=== PATIENT | male | born 1950 | race American Indian/Alaskan Native ===

== ENCOUNTER 2017-07-15 06:54 | Inpatient (IN) | payer OTHER ==
[~2017-07-15 06:54] MED LIST: Bupivacaine 0.5%/EPINEPHrine 1:200,000 50 ML MDV ONE; Gentamicin 40 MG/ML 2 ML Vial ONE; Scopolamine 1.5 MG Transdermal Patch TOP SCH
[2017-07-15] MEDS ORDERED: Gabapentin 300 MG Cap PO ONE (07:30)
[2017-07-15] MEDS ORDERED: Lactated Ringers 1,000 ML IV SCH (07:45)
[2017-07-15] MEDS ORDERED: Midazolam 1 MG/ML 5 ML SDV ONE (08:30)
[2017-07-15] MEDS: Tranexamic Acid 1,000 MG in Sodium Chloride 0.9% 50 ML IV SCH ×2 (08:30→11:06)
[2017-07-15] MEDS ORDERED: Propofol 200 MG/20 ML SDV ONE ×8 (08:40→15:13)
[2017-07-15] MEDS ORDERED: Ropivacaine 49.25 ML, Ketorolac 30 MG, EPINEPHrine 0.5 MG, cloNIDine 80 MCG, Sodium Chl... INJECT ONE ×5 (08:45)
[2017-07-15] MEDS ORDERED: Ketamine 500 MG/5 ML MDV IV SCH (08:45)
[2017-07-15] MEDS ORDERED: fentaNYL 100 MCG/2 ML SDV ONE ×2 (08:57→13:45)
[2017-07-15] MEDS ORDERED: ceFAZolin 2 GM in Premix Bag 1 BAG IV ONE (09:00)
[2017-07-15] MEDS ORDERED: Gentamicin 40 MG/ML 2 ML Vial ONE ×2 (09:20→13:21)
[2017-07-15] MEDS ORDERED: Lactated Ringers 1,000 ML ONE ×2 (09:25→10:48)
[2017-07-15] MEDS ORDERED: Phenylephrine 1% 10 MG/ML SDV ONE (09:53)
[2017-07-15] MEDS ORDERED: Sodium Chloride 0.9% 20 ML ONE (09:53)
[2017-07-15] MEDS ORDERED: Bisacodyl 5 MG Tab PO PRN (11:19)
[2017-07-15] MEDS ORDERED: HYDROmorphone 1 MG/ML Syringe IVPUSH PRN (11:19)
[2017-07-15] MEDS ORDERED: Aluminum Hydroxide/Magnesium Hydroxide/Simethicone Susp 30 ML Cup PO PRN (11:19)
[2017-07-15] MEDS ORDERED: Zolpidem 5 MG Tab PO PRN (11:19)
[2017-07-15] MEDS ORDERED: diphenhydrAMINE 50 MG/ML SDV IVPUSH PRN (11:19)
[2017-07-15] MEDS ORDERED: Naloxone 0.4 MG/ML SDV IVPUSH PRN (11:19)
[2017-07-15] MEDS ORDERED: Sennosides 8.6 MG Tab PO PRN (11:19)
[2017-07-15] MEDS ORDERED: Ondansetron 4 MG/2 ML SDV IVPUSH PRN (11:19)
[2017-07-15] MEDS ORDERED: Acetaminophen/oxyCODONE 325-5 MG Tab PO PRN (11:19)
--- NOTE | 2017-07-15 13:40 | CR ---
Pelvis 1V or 2V INDICATION: POST LEFT HIP ARTHROPLASTY FINDINGS: Comparison 06/09/2017. Interval postoperative changes of a left total hip arthroplasty. The distal aspect of the femoral component extends medially beyond the cortex approximately 4.3 cm. Stable right total hip arthroplasty. Findings discussed with Dr. Barlow in person at 1:35 PM on 07/15/2017.
[2017-07-15] MEDS ORDERED: Midazolam 1 MG/ML 2 ML SDV ONE (13:45)
[2017-07-15] MEDS ORDERED: ceFAZolin 2 GM in Premix Bag 1 BAG IV SCH ×2 (14:00→15:55)
[2017-07-15] MEDS ORDERED: ePHEDrine 50 MG/ML SDV ONE (14:49)
[2017-07-15] MEDS ORDERED: Vancomycin 1 GM SDV ONE (14:49)
--- NOTE | 2017-07-15 14:51 | OR ---
DATE OF PROCEDURE: 07/15/2017 PREOPERATIVE DIAGNOSIS: Left hip primary osteoarthritis. POSTOPERATIVE DIAGNOSIS: Left hip primary osteoarthritis. PROCEDURE: Left total hip arthroplasty. RISK CONTROL PRODUCT LIABILITY DIRECTOR: SHAR López FLUID: Lactated Ringer's solution. ESTIMATED BLOOD LOSS: 200 mL. COMPLICATIONS: None. SPECIMENS: None. DISCHARGE DISPOSITION: Stable to PACU. ANESTHESIA: Spinal plus conscious sedation. INSTRUMENTATION: A 58 mm Biomet G7 acetabular shell with one 20 mm screw and one 15 mm screw. A G7 acetabular liner, 40 mm liner size G and a Taperloc microplasty 15 x 115 standard offset primary femoral component, porous coated, with a +6 mm neck of the metal head which was 40 mm. INDICATIONS FOR PROCEDURE: The patient was seen preoperatively in the clinic. He had failed nonoperative treatment. He did have a previous right total hip arthroplasty in 2013. He did well after this procedure. Preoperative imaging confirmed the above-mentioned diagnosis. Risks and benefits of the procedure were explained to the patient. Informed consent was obtained. DETAILS OF PROCEDURE: The patient was seen preoperatively by myself and the anesthesia staff in the preoperative holding area where the operative sites were marked. He was brought to the operative suite by the anesthesia staff where a spinal anesthesia was administered as well conscious sedation. He had a sterile Stock catheter placed. He was placed in right lateral recumbent position on the pegboard. All extremities were found to be well padded. An axillary roll was placed. The left lower extremity was then prepped and draped in a sterile manner. Time-out was called identifying the correct patient, correct procedure, the correct site, and antibiotics had been given with appropriate period of time. An incision was made approximately 8 mm proximal to the greater trochanter then extending down just below the level of lesser trochanter. Bleeding was controlled during the procedure with Bovie electrocautery as well as an Aquamantys unit. We used Gelpi for initial retraction. The deep fascia was visualized. I then went through the deep fascia and the IT band, and then used a Charnley retractor for retraction. I then used Bovie electrocautery to dissect from the level of lesser trochanter, and then entered the insertion of the capsule and to the greater trochanter going through a part of gluteus medius. After this had been accomplished, I then took two sharp Homans on each side of the femoral neck, and then using Bovie electrocautery went down to the level of the acetabulum and used the deep knife to incise right over the tip of the acetabulum. After this had been accomplished, I then released some more tissue medially for dislocation. I was unable to dislocate the hip, and therefore, made two cuts. I then used a corkscrew to remove the head and then placed Homans at 4 and 8 o'clock and then a Steinmann pin superiorly above the acetabulum for retraction, which provided excellent exposure. I then removed the remainder of the fovea using a large curette. We then removed the labrum using a deep knife and Mary, and then used a 47 starter reamer to get to medial wall, and then sequentially reamed up to a 57. We then copiously irrigated with saline and then placed a 58 mm cup. This had good contact and the pitch changed when we were down. I then drilled my superior and posterior screws and then placed the screws. We then placed the liner. We then copiously irrigated with saline. I then concentrated on the femur. We used a juke box servicer to get lateral enough on the femur, and then due to the very thick marrow, I then used a starting reamer by hand and then used a curette and then went back to the reamer and used a lateral reamer. I punched through just distal to the lesser trochanter in the canal. We then sequentially broached from 7 to 15 stopping at 15. I then trailed with a standard offset zero and then went to a plus 6. The plus 6 had notion shuck and no dislocation with external rotation. Leg lengths appeared to be equal. We then removed all components, copiously irrigated with saline, and then inserted our final femoral component head and then relocated it. This provided the same excellent stability. We then closed the capsule with two #5 Ethibond and closed the deep musculature with the gluteus minimus and gluteus medius attachments to the greater trochanter. We then closed the deep fascia with two STRATAFIX followed by subcutaneous layer with one STRATAFIX followed by skin stefano. The patient was then rolled onto his hospital bed and taken to the PACU in stable condition. Sherman Barlow DO /[id number]
[2017-07-15] MEDS ORDERED: Acetaminophen 1,000 MG in Premix Bag 1 BAG IV ONE (15:56)
[2017-07-15] MEDS ORDERED: Dexamethasone 4 MG/ML SDV IVPUSH SCH (16:00)
[2017-07-15] MEDS: Dexamethasone 4 MG/ML SDV IVPUSH SCH (18:01)
[2017-07-15] MEDS: Lactated Ringers 1,000 ML IV SCH (19:18)
[2017-07-15] MEDS: oxyCODONE 5 MG Tab PO PRN ×2 (19:18→23:00)
--- NOTE | 2017-07-15 19:59 | OR ---
DATE OF PROCEDURE: 07/15/2017 PREOPERATIVE DIAGNOSIS: Malposition of femoral stem. POSTOPERATIVE DIAGNOSIS: Malposition of femoral stem. PROCEDURE: Revision total hip arthroplasty with repositioning the femoral stem. PIPE WASHER: SHAR López ANESTHESIA: Spinal plus conscious sedation. FLUID: Lactated Ringer solution. ESTIMATED BLOOD LOSS: 50 mL. COMPLICATIONS: None. SPECIMEN: None. DISCHARGE DISPOSITION: Stable to PACU. INDICATIONS FOR THE PROCEDURE: The patient was seen in the PACU, where we got final films for his total hip arthroplasty at approximately 1115 hours to 1130 hours. This showed malposition of the femoral implant. I immediately made the patient aware because he had recently been undergoing anesthesia. I advised his that we should reposition this as soon as possible and she gave me informed consent. We then proceeded as soon as we could reasonably sterilize our instruments approximately 2 to 2.5 hours later. DETAILS OF PROCEDURE: The patient was brought to the operative suite by the Anesthesia staff, where spinal anesthesia was administered plus conscious sedation. He was placed into a PEG board on the right lateral recumbent position. All extremities were found to be well padded. The patient already had a Stock catheter placed, axillary roll was present. The left lower extremity was then prepped and draped in a sterile manner. Time-out was called identifying the correct patient, correct procedure, the correct site, and antibiotics had been with appropriate period of time. We then went through the previous incision and cut the sutures and I took as much of sutures out as we could, down to the deep sutures. I then dislocated the hip, removed the head, and then attached a back slap hammer to the femoral component and removed this easily. We then used a lateralizing reamer and then sequentially broached up to a 15, which was again a very good fit. We confirmed that this fit was good on fluoroscopy from a sterilely draped fluoroscopy unit. We then removed the femoral trial component and then placed our final component and after copiously irrigating with saline. I then trialed with the previous ball, which was a +6 and had a small amount of Shuck, so we then placed a +9 ball 40 mm on and this provided nearly no Shuck and excellent range of motion without dislocation. We then copiously irrigated again with saline. I then placed a #5 Ethibond sutures into the capsule and gluteus minimus and medius muscles into the greater trochanter closing the capsule superiorly as I could and then after placing 1 g of vancomycin powder, we then copiously irrigated with saline again and then closed the gluteus. The iliotibial band with #2 STRATAFIX followed by irrigation, followed by closure with #1 STRATAFIX subcutaneously followed by skin stefano, followed by sterile dressing. The patient was then rolled onto his hospital bed and taken to the PACU in stable condition. Sherman Barlow DO /[id number]
[2017-07-15] MEDS: Aspirin 325 MG Tab.EC PO SCH (20:26)
[2017-07-15] MEDS: Famotidine 20 MG Tab PO SCH (20:26)
[2017-07-15] MEDS ORDERED: Famotidine 20 MG Tab PO SCH (21:00)
[2017-07-15] MEDS ORDERED: Aspirin 325 MG Tab.EC PO SCH (21:00)
[2017-07-15] MEDS: ceFAZolin 2 GM in Sodium Chloride 0.9% 50 ML IV SCH (22:11)
[2017-07-15] MEDS: Ketorolac 30 MG/ML SDV IVPUSH PRN (22:11)
[2017-07-16] MEDS: Dexamethasone 4 MG/ML SDV IVPUSH SCH ×3 (00:05→11:34)
[2017-07-16] MEDS: Ketorolac 30 MG/ML SDV IVPUSH PRN ×3 (03:10→07:35)
[2017-07-16] MEDS: oxyCODONE 5 MG Tab PO PRN ×3 (03:10→22:02)
[2017-07-16] MEDS: Lactated Ringers 1,000 ML IV SCH (05:35)
[2017-07-16] MEDS: ceFAZolin 2 GM in Sodium Chloride 0.9% 50 ML IV SCH ×3 (06:00→21:58)
[2017-07-16] MEDS: Famotidine 20 MG Tab PO SCH ×2 (07:30→20:08)
[2017-07-16] MEDS: Aspirin 325 MG Tab.EC PO SCH ×2 (07:30→20:08)
[2017-07-16] MEDS ORDERED: ZOLPIDEM TARTRATE PO PRN (09:15)
[2017-07-16] MEDS ORDERED: Sildenafil 20 MG Tab PO PRN (09:15)
[2017-07-16] MEDS ORDERED: Albuterol 8 GM Inhaler INH PRN (09:15)
[2017-07-16] MEDS: Carvedilol 12.5 MG Tab PO SCH (09:43)
[2017-07-16] MEDS: Hydrochlorothiazide/Triamterene 25-37.5 MG Cap PO SCH (09:44)
[2017-07-16] MEDS: Fish Oil/Omega-3 Fatty Acids 1 Gm Cap PO SCH (09:44)
[2017-07-16] MEDS: Levothyroxine 25 MCG Tab PO SCH (09:45)
[2017-07-16] MEDS: Docusate Sodium 100 MG Cap PO SCH (09:46)
[2017-07-16] MEDS: Sodium Chloride 0.9% 10 ML Syringe FLUSH SCH (09:47)
[2017-07-16] MEDS: Losartan 50 MG Tab PO SCH (09:48)
[2017-07-16] MEDS: Rosuvastatin 10 MG Tab PO SCH (09:49)
[2017-07-16] MEDS: Tamsulosin 0.4 MG Cap.ER PO SCH (09:49)
[2017-07-16] MEDS: Cetirizine 10 MG Tab PO SCH (09:50)
--- NOTE | 2017-07-16 09:59 | PCM.PN ---
- General Info Date of Service: 07/16/17 Functional Status: Reports: Pain Controlled, Tolerating Diet, Ambulating, Urinating - Patient Data Vitals - Most Recent: Last Vital Signs Temp 36.9 C 07/15/17 22:19 Pulse 85 07/16/17 09:43 Resp 18 07/15/17 22:19 BP 113/71 07/16/17 09:48 Pulse Ox 94 L 07/16/17 08:00 Weight - Most Recent: 273 lb I&O - Last 24 Hours: Intake & Output 07/15/17 07/16/17 07/16/17 22:59 06:59 14:59 Intake Total 1280 Output Total 235 Balance 1045 Lab Results Last 24 Hours: Laboratory Results - last 24 hr 07/16/17 07/16/17 Range/Units 05:15 05:19 WBC 15.3 H (4.5-11.0) K/uL RBC 3.78 L (4.30-5.90) M/uL Hgb 11.8 L D (12.0-15.0) g/dL Hct 35.4 L (40.0-54.0) % MCV 94 (80-98) fL MCH 31 (27-31) pg MCHC 33 (32-36) % Plt Count 189 (150-400) K/uL Neut % (Auto) 91 H (36-66) % Lymph % (Auto) 4 L (24-44) % [place] % (Auto) 5 (2-6) % Eos % (Auto) 0 L (2-4) % Baso % (Auto) 0 (0-1) % Sodium 132 L (140-148) mmol/L Potassium 4.0 (3.6-5.2) mmol/L Chloride 98 L (100-108) mmol/L Carbon Dioxide 23 (21-32) mmol/L Anion Gap 15.0 H (5.0-14.0) mmol/L BUN 19 H (7-18) mg/dL Creatinine 1.2 (0.8-1.3) mg/dL Est Cr Clr Drug Dosing 62.37 mL/min Estimated GFR (MDRD) > 60 (>60) Glucose 178 H (74-106) mg/dL Calcium 8.0 L D (8.5-10.1) mg/dL Total Bilirubin 0.5 (0.2-1.0) mg/dL AST 63 H (15-37) U/L ALT 59 (12-78) U/L Alkaline Phosphatase 59 (46-116) U/L Total Protein 6.9 (6.4-8.2) g/dL Albumin 3.2 L (3.4-5.0) g/dL Globulin 3.7 H (2.3-3.5) g/dL Albumin/Globulin Ratio 0.9 L (1.2-2.2) Med Orders - Current: Current Medications Al Hydroxide/Mg Hydroxide (Mag-Al Plus) 30 ml PO Q4H PRN PRN Reason: Constipation Albuterol (Ventolin Hfa) 0 gm INH Q6H PRN PRN Reason: Shortness of Breath Aspirin (Ecotrin) 325 mg PO BID [facility] Last Admin: 07/16/17 09:00 Dose: 325 mg Bisacodyl (Dulcolax) 10 mg PO DAILY PRN PRN Reason: Constipation Carvedilol (Coreg) 12.5 mg PO DAILY [facility] Last Admin: 07/16/17 09:43 Dose: 12.5 mg Cetirizine HCl (Zyrtec) 10 mg PO DAILY [facility] Last Admin: 07/16/17 09:50 Dose: 10 mg Dexamethasone (Dexamethasone) 4 mg IVPUSH Q6H [facility] Stop: 07/16/17 12:01 Last Admin: 07/16/17 00:05 Dose: 4 mg Diazepam (Valium) 5 mg IVPUSH Q6H PRN PRN Reason: Spasms Diphenhydramine HCl (Benadryl) 25 mg IVPUSH Q4H PRN PRN Reason: Itching Docusate Sodium (Colace) 100 mg PO BID PRN PRN Reason: Constipation Docusate Sodium (Colace) 100 mg PO DAILY [facility] Last Admin: 07/16/17 09:46 Dose: 100 mg Famotidine (Pepcid) 20 mg PO BID [facility] Last Admin: 07/16/17 09:00 Dose: 20 mg Fish Oil (Fish Oil) 1 gm PO DAILY [facility] Last Admin: 07/16/17 09:44 Dose: 1 gm Hydromorphone HCl (Dilaudid) 1 mg IVPUSH Q2H PRN PRN Reason: Pain Lactated Ringer's (Ringers, Lactated) 1,000 mls @ 100 mls/hr IV ASDIRECTED [facility] Last Admin: 07/15/17 19:18 Dose: 100 mls/hr Cefazolin Sodium 2 gm/ Sodium (Chloride) 50 mls @ 100 mls/hr IV Q8H [facility] Stop: 07/16/17 22:29 Last Admin: 07/15/17 22:11 Dose: 100 mls/hr Ketorolac Tromethamine (Toradol) 30 mg IVPUSH Q8H PRN PRN Reason: Pain Stop: 07/20/17 11:20 Last Admin: 07/15/17 22:11 Dose: 30 mg Levothyroxine Sodium (Levothyroxine) 25 mcg PO DAILY@0730 [facility] Last Admin: 07/16/17 09:45 Dose: 25 mcg Losartan Potassium (Cozaar) 100 mg PO DAILY [facility] Last Admin: 07/16/17 09:48 Dose: 100 mg Magnesium Hydroxide (Milk Of Magnesia) 30 ml PO BID PRN PRN Reason: Constipation Multivitamins/Minerals (Thera M Plus) 1 tab PO DAILY [facility] Ondansetron HCl (Zofran) 8 mg IVPUSH Q4H PRN PRN Reason: Nausea/Vomiting Oxycodone HCl (Oxycodone) 10 mg PO Q4H PRN PRN Reason: Pain Last Admin: 07/15/17 23:00 Dose: 10 mg Rosuvastatin Calcium (Crestor) 20 mg PO DAILY [facility] Last Admin: 07/16/17 09:49 Dose: 20 mg Scopolamine (Transderm-Scop) 1.5 mg TOP Q72H [facility] Stop: 07/18/17 03:00 Last Admin: 07/15/17 07:48 Dose: 1.5 mg Senna (Senna) 8.6 mg PO BID PRN PRN Reason: Constipation Sildenafil Citrate (Revatio) 100 mg PO ASDIRECTED PRN PRN Reason: Other Sodium Chloride (Saline Flush) 10 ml FLUSH DAILY [facility] Last Admin: 07/16/17 09:47 Dose: 10 ml Tamsulosin HCl (Flomax) 0.8 mg PO DAILY [facility] Last Admin: 07/16/17 09:49 Dose: 0.8 mg Tramadol HCl (Ultram) 100 mg PO Q6H PRN PRN Reason: Pain Triamterene/HCTZ (Dyazide 25-37.5 Mg) 2 each PO DAILY [facility] Last Admin: 07/16/17 09:44 Dose: 2 each Zolpidem Tartrate (Ambien) 5 mg PO BEDTIME PRN PRN Reason: Sleep Last Admin: 07/15/17 22:11 Dose: 5 mg Discontinued Medications Aspirin (Ecotrin) 325 mg PO BID [facility] Bupivacaine HCl/Epinephrine Bitart (Marcaine 0.5%/Epinephrine 1:200,000) Confirm Administered Dose 50 ml .ROUTE .STK-MED ONE Stop: 07/15/17 06:41 Ropivacaine 49.25 ml/Ketorolac Tromethamine 30 mg/Epinephrine HCl 0.5 mg/ Clonidine HCl 80 mcg/ Sodium Chloride 48.45 ml 0 ml INJECT ONETIME ONE Stop: 07/15/17 08:46 Last Admin: 07/15/17 09:33 Dose: 100 ml Dexamethasone (Dexamethasone) 4 mg IVPUSH Q6H [facility] Stop: 07/16/17 10:01 Last Admin: 07/15/17 17:47 Dose: Not Given Diazepam (Valium) 2 mg IVPUSH ONETIME ONE Stop: 07/15/17 11:44 Last Admin: 07/15/17 11:50 Dose: 2 mg Ephedrine Sulfate (Ephedrine Sulfate) Confirm Administered Dose 100 mg .ROUTE .STK-MED ONE Stop: 07/15/17 14:50 Famotidine (Pepcid) 20 mg PO BID [facility] Fentanyl (Sublimaze) Confirm Administered Dose 100 mcg .ROUTE .STK-MED ONE Stop: 07/15/17 08:58 Fentanyl (Sublimaze) Confirm Administered Dose 100 mcg .ROUTE .STK-MED ONE Stop: 07/15/17 13:46 Gabapentin (Neurontin) 300 mg PO ONETIME ONE Stop: 07/15/17 07:31 Last Admin: 07/15/17 07:49 Dose: 300 mg Gentamicin Sulfate (Gentamicin) Confirm Administered Dose 240 mg .ROUTE .STK- MED ONE Stop: 07/15/17 06:41 Last Admin: 07/15/17 10:08 Dose: 240 mg Gentamicin Sulfate (Gentamicin) Confirm Administered Dose 240 mg .ROUTE .STK- MED ONE Stop: 07/15/17 09:21 Last Admin: 07/15/17 10:09 Dose: 240 mg Gentamicin Sulfate (Gentamicin) Confirm Administered Dose 240 mg .ROUTE .STK- MED ONE Stop: 07/15/17 13:22 Last Admin: 07/15/17 14:09 Dose: 240 mg Lactated Ringer's (Ringers, Lactated) 1,000 mls @ 0 mls/hr IV ASDIRECTED [facility] PRN Reason: KVO Last Admin: 07/15/17 07:37 Dose: 100 mls/hr Tranexamic Acid 1,000 mg/ (Sodium Chloride) 60 mls @ 240 mls/hr IV Q3H [facility] Stop: 07/15/17 11:59 Last Admin: 07/15/17 11:06 Dose: 240 mls/hr Ketamine HCl 100 mg/ Sodium (Chloride) 100 mls @ 21 mls/hr IV ASDIRECTED [facility] Cefazolin Sodium/Dextrose 2 gm (/ Premix) 50 mls @ 100 mls/hr IV PREPRO ONE Stop: 07/15/17 09:29 Last Admin: 07/15/17 08:35 Dose: 100 mls/hr Lactated Ringer's (Ringers, Lactated) Confirm Administered Dose 1,000 mls @ as directed .ROUTE .STK-MED ONE Stop: 07/15/17 09:26 Sodium Chloride (Normal Saline) Confirm Administered Dose 20 mls @ as directed .ROUTE .STK-MED ONE Stop: 07/15/17 09:54 Lactated Ringer's (Ringers, Lactated) Confirm Administered Dose 1,000 mls @ as directed .ROUTE .STK-MED ONE Stop: 07/15/17 10:49 Cefazolin Sodium/Dextrose 2 gm (/ Premix) 50 mls @ 100 mls/hr IV Q8H [facility] Stop: 07/16/17 06:29 Last Admin: 07/15/17 14:06 Dose: 100 mls/hr Cefazolin Sodium/Dextrose 2 gm (/ Premix) 50 mls @ 100 mls/hr IV Q8H [facility] Stop: 07/16/17 14:29 Last Admin: 07/15/17 17:46 Dose: Not Given Acetaminophen 1,000 mg/ Premix 100 mls @ 400 mls/hr IV ONETIME ONE Stop: 07/15/17 16:10 Last Admin: 07/15/17 16:04 Dose: 400 mls/hr Ketamine HCl (Ketalar) 35 mg IV ASDIRECTED BEV Midazolam HCl (Versed 1 Mg/Ml) Confirm Administered Dose 5 mg .ROUTE .STK-MED ONE Stop: 07/15/17 08:31 Midazolam HCl (Versed 1 Mg/Ml) Confirm Administered Dose 2 mg .ROUTE .STK-MED ONE Stop: 07/15/17 13:46 Naloxone HCl (Narcan) 0.1 mg IVPUSH ONETIME PRN PRN Reason: Oversedation Stop: 07/15/17 11:20 Non-Formulary Medication (Zolpidem Tartrate [Ambien]) 1 tab PO BEDTIME PRN PRN Reason: Insomnia Oxycodone/Acetaminophen (Percocet 325-5 Mg) 2 tab PO Q4H PRN PRN Reason: Pain Phenylephrine HCl (Rene-Synephrine) Confirm Administered Dose 10 mg .ROUTE .STK- MED ONE Stop: 07/15/17 09:54 Propofol (Diprivan 20 Ml) Confirm Administered Dose 200 mg .ROUTE .STK-MED ONE Stop: 07/15/17 08:41 Propofol (Diprivan 20 Ml) Confirm Administered Dose 200 mg .ROUTE .STK-MED ONE Stop: 07/15/17 08:55 Propofol (Diprivan 20 Ml) Confirm Administered Dose 200 mg .ROUTE .STK-MED ONE Stop: 07/15/17 09:29 Propofol (Diprivan 20 Ml) Confirm Administered Dose 200 mg .ROUTE .STK-MED ONE Stop: 07/15/17 10:15 Propofol (Diprivan 20 Ml) Confirm Administered Dose 200 mg .ROUTE .STK-MED ONE Stop: 07/15/17 13:46 Propofol (Diprivan 20 Ml) Confirm Administered Dose 200 mg .ROUTE .STK-MED ONE Stop: 07/15/17 14:35 Propofol (Diprivan 20 Ml) Confirm Administered Dose 200 mg .ROUTE .STK-MED ONE Stop: 07/15/17 14:46 Propofol (Diprivan 20 Ml) Confirm Administered Dose 200 mg .ROUTE .STK-MED ONE Stop: 07/15/17 15:14 Vancomycin HCl (Vancomycin) Confirm Administered Dose 1 gm .ROUTE .STK-MED ONE Stop: 07/15/17 14:50 Last Admin: 07/15/17 16:03 Dose: 1 gm - Exam General: Alert, Oriented Extremities: Normal Inspection, Normal Range of Motion, Non-Tender, No Pedal Edema, Normal Capillary Refill Peripheral Pulses: 2+: Dorsalis Pedis (L), Dorsalis Pedis (R) Skin: Warm, Dry, Intact Wound/Incisions: Healing Well, Dressing Dry and Intact, No Drainage Neurological: No New Focal Deficit Psy/Mental Status: Alert - Problem List Review Problem List Initiated/Reviewed/Updated: Yes - My Orders Last 24 Hours: My Active Orders 07/15/17 11:19 Alum Hydrox/Mag Hydrox/Simeth [Mag-Al Plus] 30 ml PO Q4H PRN Bisacodyl [Dulcolax] 10 mg PO DAILY PRN Diazepam [Valium] 5 mg IVPUSH Q6H PRN Docusate Sodium [Colace] 100 mg PO BID PRN HYDROmorphone [Dilaudid] 1 mg IVPUSH Q2H PRN Ketorolac [Toradol] 30 mg IVPUSH Q8H PRN Magnesium Hydroxide [Milk of Magnesia] 30 ml PO BID PRN Ondansetron [Zofran] 8 mg IVPUSH Q4H PRN Sennosides [Senna] 8.6 mg PO BID PRN Zolpidem [Ambien] 5 mg PO BEDTIME PRN diphenhydrAMINE [Benadryl] 25 mg IVPUSH Q4H PRN traMADol [Ultram] 100 mg PO Q6H PRN Resuscitation Status Routine 07/15/17 11:20 Patient Status [ADT] Routine Ambulate [RC] QID Intake and Output [RC] QSHIFT May Shower [RC] ASDIRECTED Neurovascular Check [RC] Q4HR Pulse Oximetry [RC] CONTINUOUS RT Incentive Spirometry [RC] Q1HWA Up to Chair [RC] QID Wound Care [RC] Q12H OT Evaluation and Treatment [CONS] Routine PT Evaluation and Treatment [CONS] Routine Sequential Compression Device [OM.PC] Per Unit Routine 07/15/17 11:30 Lactated Ringers [Ringers, Lactated] 1,000 ml IV ASDIRECTED Convert IV to Saline Lock [OM.PC] PER UNIT ROUTINE Ice Therapy [OM.PC] PER UNIT ROUTINE 07/15/17 15:55 oxyCODONE 10 mg PO Q4H PRN 07/15/17 18:00 Dexamethasone 4 mg IVPUSH Q6H 07/15/17 21:00 Aspirin [Ecotrin] 325 mg PO BID Famotidine [Pepcid] 20 mg PO BID 07/15/17 22:00 ceFAZolin [Ancef] 2 gm Sodium Chloride 0.9% [Normal Saline] 50 ml IV Q8H 07/15/17 Dinner Advance Diet Instructions [DIET] 07/16/17 09:00 Carvedilol [Coreg] 12.5 mg PO DAILY Sodium Chloride 0.9% [Saline Flush] 10 ml FLUSH DAILY 07/16/17 09:15 Albuterol [Ventolin HFA] 0 gm INH Q6H PRN Cetirizine [ZyrTEC] 10 mg PO DAILY Docusate Sodium [Colace] 100 mg PO DAILY Fish Oil/[place]-3 Fatty Acids [Fish Oil] 1 gm PO DAILY HCTZ/Triamterene [Dyazide 25-37.5 MG] 2 each PO DAILY Levothyroxine 25 mcg PO DAILY@0730 Losartan [Cozaar] 100 mg PO DAILY Rosuvastatin [Crestor] 20 mg PO DAILY Sildenafil [Revatio] 100 mg PO ASDIRECTED PRN Tamsulosin [Flomax] 0.8 mg PO DAILY 07/16/17 12:00 Multivitamins w-Iron/Ca/FA/Min [Thera M Plus] 1 tab PO DAILY 07/17/17 05:15 CBC WITH AUTO DIFF [HEME] DAILY COMPREHENSIVE METABOLIC PN,CMP [CHEM] DAILY 07/18/17 05:15 CBC WITH AUTO DIFF [HEME] DAILY COMPREHENSIVE METABOLIC PN,CMP [CHEM] DAILY 07/19/17 05:15 CBC WITH AUTO DIFF [HEME] DAILY COMPREHENSIVE METABOLIC PN,CMP [CHEM] DAILY - Plan Plan:: Jean is doing very well today. He is status postop day 1 of the left total hip. He states he is in some pain right now but otherwise is doing well. He's been ambulating without any difficulties. He states that he is urinating and eating fine. Plan: At this time we will continue to have PT/OT assess. He will continue with oral pain medication. We will plan for discharge tomorrow am.
[2017-07-16] MEDS: Magnesium Hydroxide 400 MG/5 ML Susp 30 ML Cup PO PRN (11:37)
[2017-07-16] MEDS: Docusate Sodium 100 MG Cap PO PRN ×2 (11:38→22:04)
[2017-07-16] MEDS: Multivitamins with Iron/Calcium/Folic Acid/Minerals Tab PO SCH (11:41)
[2017-07-16] MEDS ORDERED: Diazepam 5 MG Tab PO PRN (15:28)
[2017-07-16] MEDS: traMADol 50 MG Tab PO PRN (16:17)
[2017-07-16] MEDS: Zolpidem 5 MG Tab PO PRN (23:32)
[2017-07-17] MEDS: oxyCODONE 5 MG Tab PO PRN ×4 (03:09→20:46)
[2017-07-17] MEDS: Levothyroxine 25 MCG Tab PO SCH (07:42)
[2017-07-17] MEDS: Losartan 50 MG Tab PO SCH (08:56)
[2017-07-17] MEDS: Carvedilol 12.5 MG Tab PO SCH (08:56)
[2017-07-17] MEDS: Docusate Sodium 100 MG Cap PO SCH (08:56)
[2017-07-17] MEDS: Hydrochlorothiazide/Triamterene 25-37.5 MG Cap PO SCH (08:57)
[2017-07-17] MEDS: Rosuvastatin 10 MG Tab PO SCH (08:57)
[2017-07-17] MEDS: Fish Oil/Omega-3 Fatty Acids 1 Gm Cap PO SCH (08:58)
[2017-07-17] MEDS: Aspirin 325 MG Tab.EC PO SCH ×2 (08:58→20:47)
[2017-07-17] MEDS: Tamsulosin 0.4 MG Cap.ER PO SCH (08:58)
[2017-07-17] MEDS: Multivitamins with Iron/Calcium/Folic Acid/Minerals Tab PO SCH (08:59)
[2017-07-17] MEDS: Famotidine 20 MG Tab PO SCH ×2 (08:59→20:47)
[2017-07-17] MEDS: Cetirizine 10 MG Tab PO SCH (09:00)
[2017-07-17] MEDS: Sodium Chloride 0.9% 10 ML Syringe FLUSH SCH (09:00)
[2017-07-17] MEDS ORDERED: Adenosine 6 MG/2 ML SDV IVPUSH ONE (09:45)
--- NOTE | 2017-07-17 12:23 | PCM.CONS ---
H&P History of Present Illness - General Date of Service: 07/17/17 Admit Problem/Dx: Admission Diagnosis/Problem Admission Diagnosis/Problem Osteoarthritis Source of Information: Patient, Provider, RN Notes Reviewed History Limitations: Reports: No Limitations - History of Present Illness Initial Comments - Free Text/Narative: Mr. Talamantes is a 67-year-old gentleman who was admitted by Dr. Barlow and underwent a total arthroplasty. He had done well since his surgery over the past few days but this morning was noted by nursing staff to have a heart rate in the 150-170 range. Patient is unaware of the elevated heart rate and denies significant lightheadedness, chest pain, chest pressure, or shortness of breath. EKG shows a narrow complex tachycardia rate of approximately 150, no obvious flutter waves. He does have a known history of coronary artery disease and is status post angioplasty with stent placement almost 20 years ago. He has had no symptoms since that time and denies any previous history of significant cardiac dysrhythmias. Left Hip Pain Score (Numeric/FACES): 4 - Related Data Allergies/Adverse Reactions: Allergies Allergy/AdvReac Type Severity Reaction Status Date / Time Bleach (Sodium Hypochlorite) Allergy Hives Verified 07/06/17 10:32 morphine Allergy Depression Verified 07/15/17 07:27 simvastatin Allergy Muscle Verified 07/15/17 07:27 Aches Home Medications: Home Meds Albuterol [IJD: Albuterol HFA] 2 puff INH Q6H PRN 07/01/17 [History] Aspirin 325 mg PO DAILY 07/01/17 [History] Carvedilol [Coreg] 1 tab PO DAILY 07/01/17 [History] Cetirizine HCl [Zyrtec] 1 tab PO DAILY 07/01/17 [History] Docusate Sodium [Colace] 100 mg PO DAILY 07/01/17 [History] Levothyroxine 1 tab PO DAILY 07/01/17 [History] Losartan [Cozaar] 100 mg PO DAILY 07/01/17 [History] Multivitamin [Multivitamins] 1 tab PO DAILY 07/01/17 [History] [place]-3S/DHA/Epa/Fish Oil [[place]-3 Fish Oil 1,000 mg Sfgl] 1 tab PO DAILY [History] Rosuvastatin [Crestor] 0.5 tab PO DAILY 07/01/17 [History] Sildenafil Citrate [Sildenafil] 100 mg PO ASDIRECTED PRN 07/01/17 [History] Tamsulosin HCl [Flomax] 2 cap PO DAILY 07/01/17 [History] Triamterene/Hydrochlorothiazid [Triamterene-HCTZ 75-50 MG] 1 tab PO DAILY [History] Zolpidem Tartrate [Ambien] 1 tab PO BEDTIME PRN 07/01/17 [History] Aspirin [Ecotrin] 325 mg PO BID #60 tab.ec 07/16/17 [Rx] oxyCODONE HCl/Acetaminophen [Percocet 10-325 mg Tablet] 1 each PO Q6HR PRN #90 tablet 07/16/17 [Rx] Past Medical History HEENT History: Reports: Hard of Hearing Cardiovascular History: Reports: High Cholesterol, Hypertension, Stents Respiratory History: Reports: Asthma, Sleep Apnea, SOB Gastrointestinal History: Reports: Colon Polyp Genitourinary History: Reports: Retention, Urinary, Other (See Below) Other Genitourinary History: slow stream Musculoskeletal History: Reports: Fracture, Other (See Below) Other Musculoskeletal History: left hip pain Neurological History: Reports: Concussion Endocrine/Metabolic History: Reports: Hypothyroidism, Obesity/BMI 30+ - Infectious Disease History Infectious Disease History: Reports: Chicken Pox, Measles, Other (See Below) Other Infectious Disease History: 7 years old maybe hepatitis from [place] - Past Surgical History Cardiovascular Surgical History: Reports: Coronary Artery Stent Respiratory Surgical History: Reports: None GI Surgical History: Reports: Colonoscopy, EGD Musculoskeletal Surgical History: Reports: Other (See Below) Other Musculoskeletal Surgeries/Procedures:: both leg pins Social & Family History - Family History Family Medical History: Noncontributory - Tobacco Use Smoking Status *Q: Never Smoker Second Hand Smoke Exposure: Yes - Caffeine Use Caffeine Use: Reports: Coffee - Alcohol Use Days Per Week of Alcohol Use: 2 Number of Drinks Per Day: 6 Total Drinks Per Week: 12 - Recreational Drug Use Recreational Drug Use: No H&P Review of Systems - Review of Systems: Review Of Systems: See Below General: Denies: Fever, Chills, Weakness Pulmonary: Reports: No Symptoms Cardiovascular: Reports: No Symptoms. Denies: Chest Pain, Palpitations, Dyspnea on Exertion, Orthopnea, PND, Edema, Lightheadedness Gastrointestinal: Reports: No Symptoms Musculoskeletal: Reports: Leg Pain Neurological: Reports: No Symptoms Exam - Exam Exam: See Below - Vital Signs Vital Signs: Last Vital Signs Temp 98.6 F 07/17/17 10:17 Pulse 108 H 07/17/17 10:17 Resp 16 07/17/17 09:20 BP 106/55 L 07/17/17 10:17 Pulse Ox 95 07/17/17 10:17 Weight: 273 lb 0.01 oz - Exam Quality Assessment: DVT Prophylaxis General: Alert, Oriented, Cooperative Neck: Supple, Trachea Midline, +2 Carotid Pulse wo Bruit Lungs: Clear to Auscultation, Normal Respiratory Effort Cardiovascular: Regular Rhythm, Normal S1, Normal S2, Tachycardia. No: Systolic Murmur, Diastolic Murmur GI/Abdominal Exam: Normal Bowel Sounds, Soft, Non-Tender, No Distention Extremities: No Pedal Edema Skin: Warm, Dry, Intact - Patient Data Lab Results Last 24 hrs: Laboratory Results - last 24 hr 07/17/17 07/17/17 Range/Units 04:55 04:55 WBC 18.6 H (4.5-11.0) K/uL RBC 3.28 L (4.30-5.90) M/uL Hgb 10.2 L (12.0-15.0) g/dL Hct 30.8 L (40.0-54.0) % MCV 94 (80-98) fL MCH 31 (27-31) pg MCHC 33 (32-36) % Plt Count 191 (150-400) K/uL Neut % (Auto) 83 H (36-66) % Lymph % (Auto) 6 L (24-44) % [place] % (Auto) 11 H (2-6) % Eos % (Auto) 0 L (2-4) % Baso % (Auto) 0 (0-1) % Sodium 137 L (140-148) mmol/L Potassium 3.7 (3.6-5.2) mmol/L Chloride 102 (100-108) mmol/L Carbon Dioxide 26 (21-32) mmol/L Anion Gap 12.7 (5.0-14.0) mmol/L BUN 19 H (7-18) mg/dL Creatinine 0.9 (0.8-1.3) mg/dL Est Cr Clr Drug Dosing 83.65 mL/min Estimated GFR (MDRD) > 60 (>60) Glucose 153 H (74-106) mg/dL Calcium 8.0 L (8.5-10.1) mg/dL Total Bilirubin 0.4 (0.2-1.0) mg/dL AST 58 H (15-37) U/L ALT 47 (12-78) U/L Alkaline Phosphatase 50 (46-116) U/L Total Protein 6.6 (6.4-8.2) g/dL Albumin 3.0 L (3.4-5.0) g/dL Globulin 3.6 H (2.3-3.5) g/dL Albumin/Globulin Ratio 0.8 L (1.2-2.2) Result Diagrams: 07/17/17 04:55 07/17/17 04:55 Consult PN Assessment/Plan Procedures: Procedures BLOOD TYPING SEROLOGIC ABO (07/06/17) BLOOD TYPING SEROLOGIC RH(D) (07/06/17) COMPLETE CBC AUTOMATED (07/06/17) COMPREHEN METABOLIC PANEL (07/06/17) CULTURE OTHR SPECIMN AEROBIC (07/06/17) ELECTROCARDIOGRAM TRACING (07/06/17) RBC ANTIBODY SCREEN (07/06/17) ROUTINE VENIPUNCTURE (07/06/17) URINALYSIS AUTO W/O SCOPE (07/06/17) Problem List Initiated/Reviewed/Updated: Yes My Orders Last 24 Hours: My Active Orders 07/17/17 09:11 EKG 12 Lead [EK] Stat 07/17/17 10:02 Telemetry Monitoring [Cardiac Monitoring] [RC] .As Directed EKG 12 Lead [EK] Routine Plan: ASSESSMENT AND RECOMMENDATIONS SUPRAVENTRICULAR TACHYCARDIA-this patient was noted to have heart rate in the range of 150 this morning, denies any previous history of cardiac dysrhythmia, does have a known history of coronary artery disease. He is currently asymptomatic, initially was somewhat resistant to medical therapy so we did try carotid massage, Valsalva, and diving reflex all of which were unsuccessful in slowing the rate or conversion. He was given 6 mg of the Adenosin IV and shortly thereafter converted to sinus tachycardia. Follow-up EKG confirms conversion to sinus tachycardia. The present time I do not think that he would tolerate further bleeding or leilani therapy because of somewhat borderline blood pressures. -Cardiac monitoring -Hold on additional therapy at this time unless he develops recurrent SVT CORONARY ARTERY DISEASE-currently asymptomatic -Continue outpatient medical regimen STATUS POST TOTAL LEFT HIP ARTHROPLASTY -Postop care per Dr. Barlow Requesting Provider: YVES Date Consult Requested: 07/17/17 Reason for Consult: Tachycardia Patient History Reviewed: Yes
[2017-07-17] MEDS: Magnesium Hydroxide 400 MG/5 ML Susp 30 ML Cup PO PRN (12:28)
[2017-07-17] MEDS: Ketorolac 30 MG/ML SDV IVPUSH PRN (12:29)
[2017-07-17] MEDS: Docusate Sodium 100 MG Cap PO PRN (20:46)
[2017-07-17] MEDS: Zolpidem 5 MG Tab PO PRN (23:27)
[2017-07-17] MEDS: traMADol 50 MG Tab PO PRN (23:42)
--- NOTE | 2017-07-18 02:23 | DISCH ---
PRIMARY DIAGNOSIS: Left hip primary osteoarthritis. PROCEDURE: Left total hip arthroplasty. SURGEON: Sherman Barlow DO. CONSULT: Jimmy Leyva MD. ALLERGIES: BLEACH, MORPHINE, AND SIMVASTATIN. DISCHARGE CONDITION: Good. DISCHARGE DISPOSITION: To home. DISCHARGE DIET: Regular diet. DISCHARGE ACTIVITY: Weightbearing as tolerated. FOLLOWUP: With Dr. Sherman Barlow [facility] 3 [facility]. MEDICATIONS: Include Percocet 10/325 one p.o. q.6 hours p.r.n. pain, aspirin 325 mg p.o. daily, Coreg 12.5 mg p.o. daily, Zyrtec 10 mg p.o. daily, docusate sodium 100 mg p.o. daily, levothyroxine 25 mcg daily, Cozaar 100 mg p.o. daily, fish oil daily, Crestor 40 mg 0.5 tab p.o. daily, sildenafil 100 mg p.o. as directed, Flomax 0.4 mg 2 capsules daily, triamterene- hydrochlorothiazide 75-50 one p.o. daily, Ambien 10 mg p.o. at bedtime p.r.n., and multivitamin one p.o. daily. SUMMARY OF HOSPITAL STAY: The patient was seen preoperatively in the clinic for the primary diagnosis. He was admitted on 07/15/2017 for the above-mentioned diagnosis, which was performed. He was kept postoperatively for physical therapy, occupational therapy, pain control, and DVT prophylaxis. He did extremely well and walked over 200 feet on postoperative day 1. He was kept overnight one more night to make sure that we had pain control under control. On post operative day two just prior to planned discharge he developed tachycardia and was converted with adenosine. He was monitored overnight without any further episodes. I discussed with the patient and his to go to the ER if he felt lightheaded after discharge. He was discharged on postoperative day 3 to home in good condition. We will see him for staple remove in three weeks. He is to keep the operative site clean and dry. He can shower and he is to call us if he has any constitutional symptoms, drainage, or increased swelling or redness. ROBIN
[2017-07-18] MEDS: oxyCODONE 5 MG Tab PO PRN (04:06)
[2017-07-18] MEDS: Levothyroxine 25 MCG Tab PO SCH (07:22)
[2017-07-18] MEDS: Rosuvastatin 10 MG Tab PO SCH (09:19)
[2017-07-18] MEDS: Multivitamins with Iron/Calcium/Folic Acid/Minerals Tab PO SCH (09:20)
[2017-07-18] MEDS: Aspirin 325 MG Tab.EC PO SCH (09:20)
[2017-07-18] MEDS: Cetirizine 10 MG Tab PO SCH (09:21)
[2017-07-18] MEDS: Famotidine 20 MG Tab PO SCH (09:21)
[2017-07-18] MEDS: Tamsulosin 0.4 MG Cap.ER PO SCH (09:21)
[2017-07-18] MEDS: Sodium Chloride 0.9% 10 ML Syringe FLUSH SCH (09:21)
[2017-07-18] MEDS: Fish Oil/Omega-3 Fatty Acids 1 Gm Cap PO SCH (09:22)
[2017-07-18] MEDS: Docusate Sodium 100 MG Cap PO SCH (09:23)
[2017-07-18] MEDS: Hydrochlorothiazide/Triamterene 25-37.5 MG Cap PO SCH (09:23)
[2017-07-18 09:36] VITALS: BP 138/71
[2017-07-18] MEDS: traMADol 50 MG Tab PO PRN (09:42)
[2017-07-18] MEDS: Carvedilol 12.5 MG Tab PO SCH (09:43)
[2017-07-18] MEDS: Losartan 50 MG Tab PO SCH (09:43)
[2017-07-18] MEDS ORDERED: Lactated Ringers 1,000 ML IV SCH ×2 (12:45→15:45)
--- NOTE | 2017-07-18 14:06 | PCM.DCSUM1 ---
Discharge Summary - Hospital Course Brief History: Mr. Talamantes is a 67-year-old gentleman who is admitted for total left hip arthroplasty secondary to underlying severe osteoarthritis of the left hip. - Discharge Data Discharge Date: 07/18/17 Discharge Disposition: Home, Self-Care 01 Condition: Fair - Discharge Diagnosis/Problem(s) (1) Paroxysmal SVT (supraventricular tachycardia) SNOMED Code(s): 24689892 ICD Code: I47.1 - SUPRAVENTRICULAR TACHYCARDIA Status: Acute Current Visit: Yes (2) Status post left hip replacement SNOMED Code(s): 320298951, 904881877, 560220078 ICD Code: Z96.642 - PRESENCE OF LEFT ARTIFICIAL HIP JOINT Status: Acute Current Visit: Yes (3) Osteoarthritis of left hip SNOMED Code(s): 280404782173922 ICD Code: M16.12 - UNILATERAL PRIMARY OSTEOARTHRITIS, LEFT HIP Status: Acute Current Visit: No Qualifiers: Osteoarthritis type: primary Qualified Code(s): M16.12 - Unilateral primary osteoarthritis, left hip (4) EDILSON (acute kidney injury) SNOMED Code(s): 44747463 ICD Code: N17.9 - ACUTE KIDNEY FAILURE, UNSPECIFIED Status: Acute Current Visit: Yes - Patient Summary/Data Consults: Consultations 07/15/17 11:20 OT Evaluation and Treatment [CONS] Routine Please Evaluate and Treat. OT Reason for Consult: Strengthening This query below is only for informational purposes and is not editable. PT Evaluation and Treatment [CONS] Routine Please Evaluate and Treat. PT Reason for Consult: Strengthening This query below is only for informational purposes and is not editable. 07/17/17 09:00 Consult to Physician [CONS] Urgent Consulting Provider: Jimmy Leyva Call Completed to Consulting Physician: No Reason for Consult: tachycardia Special Instructions: s/p L hip repair with onset of tachycardia today Hospital Course: Mr. Talamantes is a 67-year-old gentleman who was admitted to Dr. Santy Barlow undergo a total left hip arthroplasty for treatment of severe osteoarthritis of his left hip. The initial procedure was complicated by misplacement of the prosthetic hip and he had to return to the operating room for a second procedure. Following that he did well and was ambulating short distances with use of a walker. He was seen by physical therapy and occupational therapy for rehabilitation during the hospitalization and received IV fluids for hydration. Postoperative course was complicated by a narrow complex tachycardia on the initial day of planned discharge. His heart rate was noted to be in the range of 150-170. EKG confirmed narrow complex tachycardia, Valsalva and carotid massage were attempted and were of no significant benefit. He then received 6 mg of Adenocard IV and quickly converted to sinus tachycardia, and then slowly decreased to sinus rhythm which he remained in until the time of discharge. He was already treated with a beta leilani in dose was not increased because of somewhat borderline blood pressure. Over the next 24 hours his urine output was somewhat marginal and the following day he was noted to have evidence of acute kidney injury with a creatinine of 2.2 and a GFR of just above 30. I reviewed this with the patient and his and strongly encourage the patient to remain in the hospital for IV fluids and further monitoring of his urine output and renal function. Patient refused this recommendation and demanded that he be discharged home. I explained to both patient and his the risk of this, including further and permanent kidney injury as well as fluid overload and cardiac compromise. He again refused my recommendation that he remain in the hospital and because of this will be discharged to home. He should avoid use of nonsteroidal therapy after discharge including ibuprofen and naproxen. He should see his primary care provider for follow-up as soon as possible and have his renal function rechecked. He should make sure that he has good oral intake of fluids and return immediately to the hospital if he develops shortness of breath, chest pain, increased fluid retention, or recurrent rapid heart rate. Activity will be as tolerated and he will resume his usual diet. Follow-up with Dr. Barlow will be as previously arranged. - Patient Instructions Diet: Usual Diet as Tolerated Activity: Apply Ice, As Tolerated Driving: May Drive Today Showering/Bathing: May Shower Wound/Incision Care: Keep Operative Site/Wound Site Clean and Dry Notify Provider of: Fever, Increased Pain, Swelling and Redness, Drainage, Nausea and/or Vomiting Other/Special Instructions: Instructed patient to not use ibuprofen or naproxen for pain control after discharge. Follow-up appointment with Dr. Agustin Barlow as instructed. See primary care provider immediately on July 20 for follow-up of kidney function tests. Return immediately to the emergency room for increase in arm or leg swelling, shortness of breath, chest pain, or rapid heart rate. - Discharge Plan Prescriptions/Med Rec: Aspirin [Ecotrin] 325 mg PO BID #60 tab.ec oxyCODONE HCl/Acetaminophen [Percocet 10-325 mg Tablet] 1 each PO Q6HR PRN #90 tablet PRN Reason: Pain Home Medications: Home Meds Albuterol [IJD: Albuterol HFA] 2 puff INH Q6H PRN 07/01/17 [History] Aspirin 325 mg PO DAILY 07/01/17 [History] Carvedilol [Coreg] 1 tab PO DAILY 07/01/17 [History] Cetirizine HCl [Zyrtec] 1 tab PO DAILY 07/01/17 [History] Docusate Sodium [Colace] 100 mg PO DAILY 07/01/17 [History] Levothyroxine 1 tab PO DAILY 07/01/17 [History] Losartan [Cozaar] 100 mg PO DAILY 07/01/17 [History] Multivitamin [Multivitamins] 1 tab PO DAILY 07/01/17 [History] [place]-3S/DHA/Epa/Fish Oil [[place]-3 Fish Oil 1,000 mg Sfgl] 1 tab PO DAILY [History] Rosuvastatin [Crestor] 0.5 tab PO DAILY 07/01/17 [History] Sildenafil Citrate [Sildenafil] 100 mg PO ASDIRECTED PRN 07/01/17 [History] Tamsulosin HCl [Flomax] 2 cap PO DAILY 07/01/17 [History] Triamterene/Hydrochlorothiazid [Triamterene-HCTZ 75-50 MG] 1 tab PO DAILY [History] Zolpidem Tartrate [Ambien] 1 tab PO BEDTIME PRN 07/01/17 [History] Aspirin [Ecotrin] 325 mg PO BID #60 tab.ec 07/16/17 [Rx] oxyCODONE HCl/Acetaminophen [Percocet 10-325 mg Tablet] 1 each PO Q6HR PRN #90 tablet 07/16/17 [Rx] Patient Handouts: Total Hip Replacement, [id number] Referrals: Sherman Barlow DO [Physician] - 07/30/17 10:00 am (Follow up [facility] 07.30.17 at 1000. NO PT at this time is scheduled or ordered. ) - Patient Data Vitals - Most Recent: Last Vital Signs Temp 98.6 F 07/18/17 07:18 Pulse 91 07/18/17 09:43 Resp 16 07/18/17 07:18 BP 138/71 07/18/17 09:43 Pulse Ox 97 07/18/17 07:18 Weight - Most Recent: 273 lb 0.01 oz I&O - Last 24 hours: Intake & Output 07/17/17 07/18/17 07/18/17 22:59 06:59 14:59 Intake Total 980 1000 700 Output Total 450 150 Balance 980 550 550 Lab Results - Last 24 hrs: Laboratory Results - last 24 hr 07/18/17 07/18/17 07/18/17 Range/Units 05:58 05:58 11:45 WBC 13.3 H (4.5-11.0) K/uL RBC 3.18 L (4.30-5.90) M/uL Hgb 10.1 L (12.0-15.0) g/dL Hct 30.5 L (40.0-54.0) % MCV 96 (80-98) fL MCH 32 H (27-31) pg MCHC 33 (32-36) % Plt Count 187 (150-400) K/uL Neut % (Auto) 71 H (36-66) % Lymph % (Auto) 14 L (24-44) % [place] % (Auto) 15 H (2-6) % Eos % (Auto) 1 L (2-4) % Baso % (Auto) 0 (0-1) % Sodium 138 L (140-148) mmol/L Potassium 3.5 L (3.6-5.2) mmol/L Chloride 103 (100-108) mmol/L Carbon Dioxide 28 (21-32) mmol/L Anion Gap 10.5 (5.0-14.0) mmol/L BUN 32 H D (7-18) mg/dL Creatinine 2.2 H D 2.2 H (0.8-1.3) mg/dL Est Cr Clr Drug Dosing 34.22 34.22 mL/min Estimated GFR (MDRD) 30 L 30 L (>60) Glucose 110 H (74-106) mg/dL Calcium 7.5 L (8.5-10.1) mg/dL Total Bilirubin 0.4 (0.2-1.0) mg/dL AST 62 H (15-37) U/L ALT 42 (12-78) U/L Alkaline Phosphatase 53 (46-116) U/L Total Protein 6.5 (6.4-8.2) g/dL Albumin 2.9 L (3.4-5.0) g/dL Globulin 3.6 H (2.3-3.5) g/dL Albumin/Globulin Ratio 0.8 L (1.2-2.2) Med Orders - Current: Current Medications Al Hydroxide/Mg Hydroxide (Mag-Al Plus) 30 ml PO Q4H PRN PRN Reason: Constipation Albuterol (Ventolin Hfa) 0 gm INH Q6H PRN PRN Reason: Shortness of Breath Aspirin (Ecotrin) 325 mg PO BID [facility] Last Admin: 07/18/17 09:20 Dose: 325 mg Bisacodyl (Dulcolax) 10 mg PO DAILY PRN PRN Reason: Constipation Last Admin: 07/18/17 05:58 Dose: 10 mg Carvedilol (Coreg) 12.5 mg PO DAILY [facility] Last Admin: 07/18/17 09:43 Dose: 12.5 mg Cetirizine HCl (Zyrtec) 10 mg PO DAILY [facility] Last Admin: 07/18/17 09:21 Dose: 10 mg Diazepam (Valium.) 5 mg PO Q6H PRN PRN Reason: SPASM Diphenhydramine HCl (Benadryl) 25 mg IVPUSH Q4H PRN PRN Reason: Itching Docusate Sodium (Colace) 100 mg PO BID PRN PRN Reason: Constipation Last Admin: 07/17/17 20:46 Dose: 100 mg Docusate Sodium (Colace) 100 mg PO DAILY [facility] Last Admin: 07/18/17 09:23 Dose: 100 mg Famotidine (Pepcid) 20 mg PO DAILY [facility] Fish Oil (Fish Oil) 1 gm PO DAILY [facility] Last Admin: 07/18/17 09:22 Dose: 1 gm Hydromorphone HCl (Dilaudid) 1 mg IVPUSH Q2H PRN PRN Reason: Pain Lactated Ringer's (Ringers, Lactated) 1,000 mls @ 500 mls/hr IV ASDIRECTED [facility] Stop: 07/18/17 15:46 Lactated Ringer's (Ringers, Lactated) 1,000 mls @ 125 mls/hr IV ASDIRECTED [facility] Ketorolac Tromethamine (Toradol) 30 mg IVPUSH Q8H PRN PRN Reason: Pain Stop: 07/20/17 11:20 Last Admin: 07/17/17 12:29 Dose: 30 mg Levothyroxine Sodium (Levothyroxine) 25 mcg PO DAILY@0730 [facility] Last Admin: 07/18/17 07:22 Dose: 25 mcg Losartan Potassium (Cozaar) 100 mg PO DAILY [facility] Last Admin: 07/18/17 09:43 Dose: 100 mg Magnesium Hydroxide (Milk Of Magnesia) 30 ml PO BID PRN PRN Reason: Constipation Last Admin: 07/17/17 12:28 Dose: 30 ml Multivitamins/Minerals (Thera M Plus) 1 tab PO DAILY [facility] Last Admin: 07/18/17 09:20 Dose: 1 tab Ondansetron HCl (Zofran) 8 mg IVPUSH Q4H PRN PRN Reason: Nausea/Vomiting Oxycodone HCl (Oxycodone) 10 mg PO Q4H PRN PRN Reason: Pain Last Admin: 07/18/17 04:06 Dose: 10 mg Rosuvastatin Calcium (Crestor) 20 mg PO DAILY [facility] Last Admin: 07/18/17 09:19 Dose: 20 mg Senna (Senna) 8.6 mg PO BID PRN PRN Reason: Constipation Sildenafil Citrate (Revatio) 100 mg PO ASDIRECTED PRN PRN Reason: Other Sodium Chloride (Saline Flush) 10 ml FLUSH DAILY [facility] Last Admin: 07/18/17 09:21 Dose: Not Given Tamsulosin HCl (Flomax) 0.8 mg PO DAILY [facility] Last Admin: 07/18/17 09:21 Dose: 0.8 mg Tramadol HCl (Ultram) 100 mg PO Q6H PRN PRN Reason: Pain Last Admin: 07/18/17 09:42 Dose: 100 mg Triamterene/HCTZ (Dyazide 25-37.5 Mg) 2 each PO DAILY [facility] Last Admin: 07/18/17 09:23 Dose: 2 each Zolpidem Tartrate (Ambien) 10 mg PO BEDTIME PRN PRN Reason: Insomnia Last Admin: 07/17/17 23:27 Dose: 10 mg Discontinued Medications Adenosine (Adenocard) 6 mg IVPUSH NOW ONE Stop: 07/17/17 09:46 Last Admin: 07/17/17 10:16 Dose: 6 mg Aspirin (Ecotrin) 325 mg PO BID [facility] Bupivacaine HCl/Epinephrine Bitart (Marcaine 0.5%/Epinephrine 1:200,000) Confirm Administered Dose 50 ml .ROUTE .STK-MED ONE Stop: 07/15/17 06:41 Ropivacaine 49.25 ml/Ketorolac Tromethamine 30 mg/Epinephrine HCl 0.5 mg/ Clonidine HCl 80 mcg/ Sodium Chloride 48.45 ml 0 ml INJECT ONETIME ONE Stop: 07/15/17 08:46 Last Admin: 07/15/17 09:33 Dose: 100 ml Dexamethasone (Dexamethasone) 4 mg IVPUSH Q6H [facility] Stop: 07/16/17 10:01 Last Admin: 07/15/17 17:47 Dose: Not Given Dexamethasone (Dexamethasone) 4 mg IVPUSH Q6H [facility] Stop: 07/16/17 12:01 Last Admin: 07/16/17 11:34 Dose: 4 mg Diazepam (Valium) 5 mg IVPUSH Q6H PRN PRN Reason: Spasms Diazepam (Valium) 2 mg IVPUSH ONETIME ONE Stop: 07/15/17 11:44 Last Admin: 07/15/17 11:50 Dose: 2 mg Ephedrine Sulfate (Ephedrine Sulfate) Confirm Administered Dose 100 mg .ROUTE .STK-MED ONE Stop: 07/15/17 14:50 Famotidine (Pepcid) 20 mg PO BID [facility] Famotidine (Pepcid) 20 mg PO BID [facility] Last Admin: 07/18/17 09:21 Dose: 20 mg Fentanyl (Sublimaze) Confirm Administered Dose 100 mcg .ROUTE .STK-MED ONE Stop: 07/15/17 08:58 Fentanyl (Sublimaze) Confirm Administered Dose 100 mcg .ROUTE .STK-MED ONE Stop: 07/15/17 13:46 Gabapentin (Neurontin) 300 mg PO ONETIME ONE Stop: 07/15/17 07:31 Last Admin: 07/15/17 07:49 Dose: 300 mg Gentamicin Sulfate (Gentamicin) Confirm Administered Dose 240 mg .ROUTE .STK- MED ONE Stop: 07/15/17 06:41 Last Admin: 07/15/17 10:08 Dose: 240 mg Gentamicin Sulfate (Gentamicin) Confirm Administered Dose [address] .[facility] ONE Stop: 07/15/17 09:21 Last Admin: 07/15/17 10:09 Dose: 240 mg Gentamicin Sulfate (Gentamicin) Confirm Administered Dose 240 [address] .[facility] ONE Stop: 07/15/17 13:22 Last Admin: 07/15/17 14:09 Dose: 240 mg Lactated Ringer's (Ringers, Lactated) 1,000 mls @ 0 mls/hr IV ASDIRECTED [facility] PRN Reason: KVO Last Admin: 07/15/17 07:37 Dose: 100 mls/hr Tranexamic Acid 1,000 mg/ (Sodium Chloride) 60 mls @ 240 mls/hr IV Q3H [facility] Stop: 07/15/17 11:59 Last Admin: 07/15/17 11:06 Dose: 240 mls/hr Ketamine HCl 100 mg/ Sodium (Chloride) 100 mls @ 21 mls/hr IV ASDIRECTED [facility] Cefazolin Sodium/Dextrose 2 gm (/ Premix) 50 mls @ 100 mls/hr IV PREPRO ONE Stop: 07/15/17 09:29 Last Admin: 07/15/17 08:35 Dose: 100 mls/hr Lactated Ringer's (Ringers, Lactated) Confirm Administered Dose 1,000 mls @ as directed .ROUTE .[facility] ONE Stop: 07/15/17 09:26 Sodium Chloride (Normal Saline) Confirm Administered Dose 20 mls @ as directed .ROUTE .[facility] ONE Stop: 07/15/17 09:54 Lactated Ringer's (Ringers, Lactated) Confirm Administered Dose 1,000 mls @ as directed .ROUTE .[facility] ONE Stop: 07/15/17 10:49 Lactated Ringer's (Ringers, Lactated) 1,000 mls @ 100 mls/hr IV ASDIRECTED [facility] Last Admin: 07/16/17 05:35 Dose: 100 mls/hr Cefazolin Sodium/Dextrose 2 gm (/ Premix) 50 mls @ 100 mls/hr IV Q8H [facility] Stop: 07/16/17 06:29 Last Admin: 07/15/17 14:06 Dose: 100 mls/hr Cefazolin Sodium/Dextrose 2 gm (/ Premix) 50 mls @ 100 mls/hr IV Q8H [facility] Stop: 07/16/17 14:29 Last Admin: 07/15/17 17:46 Dose: Not Given Acetaminophen 1,000 mg/ Premix 100 mls @ 400 mls/hr IV ONETIME ONE Stop: 07/15/17 16:10 Last Admin: 07/15/17 16:04 Dose: 400 mls/hr Cefazolin Sodium 2 gm/ Sodium (Chloride) 50 mls @ 100 mls/hr IV Q8H [facility] Stop: 07/16/17 22:29 Last Admin: 07/16/17 21:58 Dose: 100 mls/hr Ketamine HCl (Ketalar) 35 mg IV ASDIRECTED [facility] Midazolam HCl (Versed 1 Mg/Ml) Confirm Administered Dose 5 mg .ROUTE .STK-MED ONE Stop: 07/15/17 08:31 Midazolam HCl (Versed 1 Mg/Ml) Confirm Administered Dose 2 mg .ROUTE .STK-MED ONE Stop: 07/15/17 13:46 Naloxone HCl (Narcan) 0.1 mg IVPUSH ONETIME PRN PRN Reason: Oversedation Stop: 07/15/17 11:20 Non-Formulary Medication (Zolpidem Tartrate [Ambien]) 1 tab PO BEDTIME PRN PRN Reason: Insomnia Oxycodone/Acetaminophen (Percocet 325-5 Mg) 2 tab PO Q4H PRN PRN Reason: Pain Phenylephrine HCl (Rene-Synephrine) Confirm Administered Dose 10 mg .ROUTE .STK- MED ONE Stop: 07/15/17 09:54 Propofol (Diprivan 20 Ml) Confirm Administered Dose 200 mg .ROUTE .STK-MED ONE Stop: 07/15/17 08:41 Propofol (Diprivan 20 Ml) Confirm Administered Dose 200 mg .ROUTE .STK-MED ONE Stop: 07/15/17 08:55 Propofol (Diprivan 20 Ml) Confirm Administered Dose 200 mg .ROUTE .STK-MED ONE Stop: 07/15/17 09:29 Propofol (Diprivan 20 Ml) Confirm Administered Dose 200 mg .ROUTE .STK-MED ONE Stop: 07/15/17 10:15 Propofol (Diprivan 20 Ml) Confirm Administered Dose 200 mg .ROUTE .STK-MED ONE Stop: 07/15/17 13:46 Propofol (Diprivan 20 Ml) Confirm Administered Dose 200 mg .ROUTE .STK-MED ONE Stop: 07/15/17 14:35 Propofol (Diprivan 20 Ml) Confirm Administered Dose 200 mg .ROUTE .STK-MED ONE Stop: 07/15/17 14:46 Propofol (Diprivan 20 Ml) Confirm Administered Dose 200 mg .ROUTE .STK-MED ONE Stop: 07/15/17 15:14 Scopolamine (Transderm-Scop) 1.5 mg TOP Q72H BEV Stop: 07/18/17 03:00 Last Admin: 07/15/17 07:48 Dose: 1.5 mg Vancomycin HCl (Vancomycin) Confirm Administered Dose 1 gm .ROUTE .STK-MED ONE Stop: 07/15/17 14:50 Last Admin: 07/15/17 16:03 Dose: 1 gm Zolpidem Tartrate (Ambien) 5 mg PO BEDTIME PRN PRN Reason: Sleep Last Admin: 07/15/17 22:11 Dose: 5 mg *Q Meaningful Use (DIS) - VTE *Q VTE Criteria *Q: - Stroke *Q Stroke Criteria *Q: - AMI *Q AMI Criteria *Q:
[2017-07-19] MEDS ORDERED: Famotidine 20 MG Tab PO SCH (09:00)
--- NOTE | 2017-08-03 10:05 | PCM.PN ---
- General Info Date of Service: 07/18/17 Functional Status: Reports: Pain Controlled, Ambulating, Urinating - Review of Systems General: Reports: No Symptoms HEENT: Reports: No Symptoms Pulmonary: Reports: No Symptoms Cardiovascular: Reports: No Symptoms Gastrointestinal: Reports: No Symptoms Genitourinary: Reports: No Symptoms Musculoskeletal: Reports: Joint Pain Skin: Reports: No Symptoms Neurological: Reports: No Symptoms Psychiatric: Reports: No Symptoms - Patient Data Vitals - Most Recent: Last Vital Signs Temp 98.6 F 07/18/17 07:18 Pulse 91 07/18/17 09:43 Resp 16 07/18/17 07:18 BP 138/71 07/18/17 09:43 Pulse Ox 97 07/18/17 07:18 Weight - Most Recent: 273 lb 0.01 oz Med Orders - Current: Current Medications Discontinued Medications Adenosine (Adenocard) 6 mg IVPUSH NOW ONE Stop: 07/17/17 09:46 Last Admin: 07/17/17 10:16 Dose: 6 mg Al Hydroxide/Mg Hydroxide (Mag-Al Plus) 30 ml PO Q4H PRN PRN Reason: Constipation Albuterol (Ventolin Hfa) 0 gm INH Q6H PRN PRN Reason: Shortness of Breath Aspirin (Ecotrin) 325 mg PO BID BEV Aspirin (Ecotrin) 325 mg PO BID PENDING SALE TO [facility] Last Admin: 07/18/17 09:20 Dose: 325 mg Bisacodyl (Dulcolax) 10 mg PO DAILY PRN PRN Reason: Constipation Last Admin: 07/18/17 05:58 Dose: 10 mg Bupivacaine HCl/Epinephrine Bitart (Marcaine 0.5%/Epinephrine 1:200,000) Confirm Administered Dose 50 ml .ROUTE .STK-MED ONE Stop: 07/15/17 06:41 Carvedilol (Coreg) 12.5 mg PO DAILY PENDING SALE TO [facility] Last Admin: 07/18/17 09:43 Dose: 12.5 mg Cetirizine HCl (Zyrtec) 10 mg PO DAILY PENDING SALE TO [facility] Last Admin: 07/18/17 09:21 Dose: 10 mg Ropivacaine 49.25 ml/Ketorolac Tromethamine 30 mg/Epinephrine HCl 0.5 mg/ Clonidine HCl 80 mcg/ Sodium Chloride 48.45 ml 0 ml INJECT ONETIME ONE Stop: 07/15/17 08:46 Last Admin: 07/15/17 09:33 Dose: 100 ml Dexamethasone (Dexamethasone) 4 mg IVPUSH Q6H PENDING SALE TO [facility] Stop: 07/16/17 10:01 Last Admin: 07/15/17 17:47 Dose: Not Given Dexamethasone (Dexamethasone) 4 mg IVPUSH Q6H PENDING SALE TO [facility] Stop: 07/16/17 12:01 Last Admin: 07/16/17 11:34 Dose: 4 mg Diazepam (Valium) 5 mg IVPUSH Q6H PRN PRN Reason: Spasms Diazepam (Valium) 2 mg IVPUSH ONETIME ONE Stop: 07/15/17 11:44 Last Admin: 07/15/17 11:50 Dose: 2 mg Diazepam (Valium.) 5 mg PO Q6H PRN PRN Reason: SPASM Diphenhydramine HCl (Benadryl) 25 mg IVPUSH Q4H PRN PRN Reason: Itching Docusate Sodium (Colace) 100 mg PO BID PRN PRN Reason: Constipation Last Admin: 07/17/17 20:46 Dose: 100 mg Docusate Sodium (Colace) 100 mg PO DAILY PENDING SALE TO [facility] Last Admin: 07/18/17 09:23 Dose: 100 mg Ephedrine Sulfate (Ephedrine Sulfate) Confirm Administered Dose 100 mg .ROUTE .STK-MED ONE Stop: 07/15/17 14:50 Famotidine (Pepcid) 20 mg PO BID PENDING SALE TO [facility] Famotidine (Pepcid) 20 mg PO BID PENDING SALE TO [facility] Last Admin: 07/18/17 09:21 Dose: 20 mg Famotidine (Pepcid) 20 mg PO DAILY PENDING SALE TO [facility] Fentanyl (Sublimaze) Confirm Administered Dose 100 mcg .ROUTE .STK-MED ONE Stop: 07/15/17 08:58 Fentanyl (Sublimaze) Confirm Administered Dose 100 mcg .ROUTE .STK-MED ONE Stop: 07/15/17 13:46 Fish Oil (Fish Oil) 1 gm PO DAILY PENDING SALE TO [facility] Last Admin: 07/18/17 09:22 Dose: 1 gm Gabapentin (Neurontin) 300 mg PO ONETIME ONE Stop: 07/15/17 07:31 Last Admin: 07/15/17 07:49 Dose: 300 mg Gentamicin Sulfate (Gentamicin) Confirm Administered Dose 240 mg .ROUTE .STK- MED ONE Stop: 07/15/17 06:41 Last Admin: 07/15/17 10:08 Dose: 240 mg Gentamicin Sulfate (Gentamicin) Confirm Administered Dose 240 mg .ROUTE .[facility] ONE Stop: 07/15/17 09:21 Last Admin: 07/15/17 10:09 Dose: 240 mg Gentamicin Sulfate (Gentamicin) Confirm Administered Dose 240 mg .ROUTE .[facility] ONE Stop: 07/15/17 13:22 Last Admin: 07/15/17 14:09 Dose: 240 mg Hydromorphone HCl (Dilaudid) 1 mg IVPUSH Q2H PRN PRN Reason: Pain Lactated Ringer's (Ringers, Lactated) 1,000 mls @ 0 mls/hr IV ASDIRECTED PENDING SALE TO [facility] PRN Reason: KVO Last Admin: 07/15/17 07:37 Dose: 100 mls/hr Tranexamic Acid 1,000 mg/ (Sodium Chloride) 60 mls @ 240 mls/hr IV Q3H PENDING SALE TO [facility] Stop: 07/15/17 11:59 Last Admin: 07/15/17 11:06 Dose: 240 mls/hr Ketamine HCl 100 mg/ Sodium (Chloride) 100 mls @ 21 mls/hr IV ASDIRECTED PENDING SALE TO [facility] Cefazolin Sodium/Dextrose 2 gm (/ Premix) 50 mls @ 100 mls/hr IV PREPRO ONE Stop: 07/15/17 09:29 Last Admin: 07/15/17 08:35 Dose: 100 mls/hr Lactated Ringer's (Ringers, Lactated) Confirm Administered Dose 1,000 mls @ as directed .ROUTE .[facility] ONE Stop: 07/15/17 09:26 Sodium Chloride (Normal Saline) Confirm Administered Dose 20 mls @ as directed .ROUTE .[facility] ONE Stop: 07/15/17 09:54 Lactated Ringer's (Ringers, Lactated) Confirm Administered Dose 1,000 mls @ as directed .ROUTE .[facility] ONE Stop: 07/15/17 10:49 Lactated Ringer's (Ringers, Lactated) 1,000 mls @ 100 mls/hr IV ASDIRECTED PENDING SALE TO [facility] Last Admin: 07/16/17 05:35 Dose: 100 mls/hr Cefazolin Sodium/Dextrose 2 gm (/ Premix) 50 mls @ 100 mls/hr IV Q8H PENDING SALE TO [facility] Stop: 07/16/17 06:29 Last Admin: 07/15/17 14:06 Dose: 100 mls/hr Cefazolin Sodium/Dextrose 2 gm (/ Premix) 50 mls @ 100 mls/hr IV Q8H PENDING SALE TO [facility] Stop: 07/16/17 14:29 Last Admin: 07/15/17 17:46 Dose: Not Given Acetaminophen 1,000 mg/ Premix 100 mls @ 400 mls/hr IV ONETIME ONE Stop: 07/15/17 16:10 Last Admin: 07/15/17 16:04 Dose: 400 mls/hr Cefazolin Sodium 2 gm/ Sodium (Chloride) 50 mls @ 100 mls/hr IV Q8H PENDING SALE TO [facility] Stop: 07/16/17 22:29 Last Admin: 07/16/17 21:58 Dose: 100 mls/hr Lactated Ringer's (Ringers, Lactated) 1,000 mls @ 500 mls/hr IV ASDIRECTED PENDING SALE TO [facility] Stop: 07/18/17 15:46 Lactated Ringer's (Ringers, Lactated) 1,000 mls @ 125 mls/hr IV ASDIRECTED PENDING SALE TO [facility] Ketamine HCl (Ketalar) 35 mg IV ASDIRECTED PENDING SALE TO [facility] Ketorolac Tromethamine (Toradol) 30 mg IVPUSH Q8H PRN PRN Reason: Pain Stop: 07/20/17 11:20 Last Admin: 07/17/17 12:29 Dose: 30 mg Levothyroxine Sodium (Levothyroxine) 25 mcg PO DAILY@0730 PENDING SALE TO [facility] Last Admin: 07/18/17 07:22 Dose: 25 mcg Losartan Potassium (Cozaar) 100 mg PO DAILY PENDING SALE TO [facility] Last Admin: 07/18/17 09:43 Dose: 100 mg Magnesium Hydroxide (Milk Of Magnesia) 30 ml PO BID PRN PRN Reason: Constipation Last Admin: 07/17/17 12:28 Dose: 30 ml Midazolam HCl (Versed 1 Mg/Ml) Confirm Administered Dose 5 mg .ROUTE .STK-MED ONE Stop: 07/15/17 08:31 Midazolam HCl (Versed 1 Mg/Ml) Confirm Administered Dose 2 mg .ROUTE .STK-MED ONE Stop: 07/15/17 13:46 Multivitamins/Minerals (Thera M Plus) 1 tab PO DAILY PENDING SALE TO [facility] Last Admin: 07/18/17 09:20 Dose: 1 tab Naloxone HCl (Narcan) 0.1 mg IVPUSH ONETIME PRN PRN Reason: Oversedation Stop: 07/15/17 11:20 Non-Formulary Medication (Zolpidem Tartrate [Ambien]) 1 tab PO BEDTIME PRN PRN Reason: Insomnia Ondansetron HCl (Zofran) 8 mg IVPUSH Q4H PRN PRN Reason: Nausea/Vomiting Oxycodone HCl (Oxycodone) 10 mg PO Q4H PRN PRN Reason: Pain Last Admin: 07/18/17 04:06 Dose: 10 mg Oxycodone/Acetaminophen (Percocet 325-5 Mg) 2 tab PO Q4H PRN PRN Reason: Pain Phenylephrine HCl (Rene-Synephrine) Confirm Administered Dose 10 mg .ROUTE .STK- MED ONE Stop: 07/15/17 09:54 Propofol (Diprivan 20 Ml) Confirm Administered Dose 200 mg .ROUTE .STK-MED ONE Stop: 07/15/17 08:41 Propofol (Diprivan 20 Ml) Confirm Administered Dose 200 mg .ROUTE .STK-MED ONE Stop: 07/15/17 08:55 Propofol (Diprivan 20 Ml) Confirm Administered Dose 200 mg .ROUTE .STK-MED ONE Stop: 07/15/17 09:29 Propofol (Diprivan 20 Ml) Confirm Administered Dose 200 mg .ROUTE .STK-MED ONE Stop: 07/15/17 10:15 Propofol (Diprivan 20 Ml) Confirm Administered Dose 200 mg .ROUTE .STK-MED ONE Stop: 07/15/17 13:46 Propofol (Diprivan 20 Ml) Confirm Administered Dose 200 mg .ROUTE .STK-MED ONE Stop: 07/15/17 14:35 Propofol (Diprivan 20 Ml) Confirm Administered Dose 200 mg .ROUTE .STK-MED ONE Stop: 07/15/17 14:46 Propofol (Diprivan 20 Ml) Confirm Administered Dose 200 mg .ROUTE .STK-MED ONE Stop: 07/15/17 15:14 Rosuvastatin Calcium (Crestor) 20 mg PO DAILY PENDING SALE TO [facility] Last Admin: 07/18/17 09:19 Dose: 20 mg Scopolamine (Transderm-Scop) 1.5 mg TOP Q72H PENDING SALE TO [facility] Stop: 07/18/17 03:00 Last Admin: 07/15/17 07:48 Dose: 1.5 mg Senna (Senna) 8.6 mg PO BID PRN PRN Reason: Constipation Sildenafil Citrate (Revatio) 100 mg PO ASDIRECTED PRN PRN Reason: Other Sodium Chloride (Saline Flush) 10 ml FLUSH DAILY BEV Last Admin: 07/18/17 09:21 Dose: Not Given Tamsulosin HCl (Flomax) 0.8 mg PO DAILY BEV Last Admin: 07/18/17 09:21 Dose: 0.8 mg Tramadol HCl (Ultram) 100 mg PO Q6H PRN PRN Reason: Pain Last Admin: 07/18/17 09:42 Dose: 100 mg Triamterene/HCTZ (Dyazide 25-37.5 Mg) 2 each PO DAILY BEV Last Admin: 07/18/17 09:23 Dose: 2 each Vancomycin HCl (Vancomycin) Confirm Administered Dose 1 gm .ROUTE .STK-MED ONE Stop: 07/15/17 14:50 Last Admin: 07/15/17 16:03 Dose: 1 gm Zolpidem Tartrate (Ambien) 5 mg PO BEDTIME PRN PRN Reason: Sleep Last Admin: 07/15/17 22:11 Dose: 5 mg Zolpidem Tartrate (Ambien) 10 mg PO BEDTIME PRN PRN Reason: Insomnia Last Admin: 07/17/17 23:27 Dose: 10 mg - Exam General: Alert, Oriented HEENT: Pupils Equal, Pupils Reactive, EOMI Extremities: Normal Inspection, Leg Pain Peripheral Pulses: 2+: Posterior Tibial (R), Dorsalis Pedis (R) Skin: Warm, Dry Wound/Incisions: Healing Well, Dressing Dry and Intact Neurological: No New Focal Deficit Psy/Mental Status: Alert, Normal Affect - Problem List Review Problem List Initiated/Reviewed/Updated: Yes - Plan Plan:: Jean is doing very well today. He is status postop day 1 of the left total hip. He states he is in some pain right now but otherwise is doing well. He's been ambulating without any difficulties. He states that he is urinating and eating fine. Plan: At this time we will continue to have PT/OT assess. He will continue with oral pain medication. We will plan for discharge tomorrow am.
== END 2017-07-18 14:45 | disposition home or self-care (01) | DRG 467 ==
LOC: JP.SDS 06:54 → JP.MS 06:54 → EDSTATUS 09:45 → EEVIPCON 09:45 → JP.MS 16:45
PROVIDERS: ADMIT Orthopaedic Surgery; ATTEND Orthopaedic Surgery
PROC: 0SRB02A Replacement of Left Hip Joint with Metal on Polyethylene Synthetic Substitute, Uncemented, Open Approach (ICD-10-PCS; principal; 2017-07-15)
PROC: 0SWS0JZ Revision of Synthetic Substitute in Left Hip Joint, Femoral Surface, Open Approach (ICD-10-PCS; 2017-07-15)
DX: M16.12 Unilateral primary osteoarthritis, left hip (principal); T84.021A Dislocation of internal left hip prosthesis, initial encounter; I47.1 Supraventricular tachycardia; N17.9 Acute kidney failure, unspecified; I25.10 Atherosclerotic heart disease of native coronary artery without angina pectoris; Z95.5 Presence of coronary angioplasty implant and graft; J45.909 Unspecified asthma, uncomplicated; G47.30 Sleep apnea, unspecified; E03.9 Hypothyroidism, unspecified; H91.90 Unspecified hearing loss, unspecified ear; Z79.82 Long term (current) use of aspirin; Z88.5 Allergy status to narcotic agent; Z91.048 Other nonmedicinal substance allergy status
CPT/HCPCS: 36415; 72170; 72170-26; 76001; 80053; 82565; 85025; 86850; 86900; 86901; 93005; 93010; 94762; 97110-GP; 97162-GP; 97165-GO; 97530-GP; 97535-GP; A9270-GY; C1713; C1776; J0131; J0153; J0171; J0690; J0735; J1100; J1580; J1885; J2250; J2370; J2704; J2795; J3010; J3360; J3370; J7030; J7050; J7120